=== PATIENT | female | born 1965 | race Caucasian/White ===

== ENCOUNTER 2019-03-21 06:37 | Emergency (ER) | payer BC ==
[~2019-03-21] VITALS: Ht 167.6 cm; Wt 99.8 kg
[2019-03-21 06:45] VITALS: BP_SYST 175
--- NOTE | 2019-03-21 06:49 | NUR ---
Patient to ER bed 5 to gown for evaluation. Side rails up. Report given to Karen DE LA CRUZ.
--- NOTE | 2019-03-21 06:55 | NUR ---
Pt came to the ED for upper ABD pain. She was seen by her PCP yesterday for a upper respiratory infection and given Amoxicillin and virtussin. Reports 2 hours prior to ED arrival pt felt nausea. No other complaints/injuries noted. Will cont. to monitor.
--- NOTE | 2019-03-21 06:57 | NUR ---
ER at bedside examining patient.
--- NOTE | 2019-03-21 07:08 | NUR ---
Garth boo in EDM - 03/21/19 at 0709 by [email or web address] JAIME Vasquez at bedside examining patient.
[2019-03-21] MEDS ORDERED: MAG HYDROX/AL HYDROX/SIMETH 30 ML, DICYCLOMINE HCL 20 MG, LIDOCAINE VISCOUS 2% 15ML (PO... PO ONE ×3 (07:15)
[2019-03-21 07:43] LABS: BASOPHILS % (AUTO) 0.4 % (0.0-2.0); EOSINOPHILS # (AUTO) 0.1 K/uL (0.0-0.4); EOSINOPHILS % (AUTO) 1.7 % (0.0-4.0); HEMATOCRIT 41.3 % (36-48); HEMOGLOBIN 13.9 g/dL (12.0-16.0); LYMPHOCYTES # (AUTO) 1.1 K/uL (1.0-5.5); LYMPHOCYTES % (AUTO) 13.9 % (20.5-51.5); MEAN CORPUSCULAR HEMOGLOBIN 31 pg (27-31); MEAN CORPUSCULAR HGB CONC 34 % (32-36); MEAN CORPUSCULAR VOLUME 92 fL (79.0-98.0); MONOCYTES # (AUTO) 0.5 K/uL (0.0-1.0); MONOCYTES % (AUTO) 6.4 % (1.7-9.3); NEUTROPHILS # (AUTO) 6.2 K/uL (1.8-7.7); NEUTROPHILS % (AUTO) 77.6 % (40.0-70.0); PLATELET COUNT (AUTO) 200 K/uL (130-430); RED BLOOD CELL COUNT(AUTO) 4.51 MIL/uL (4.2-6.2)
[2019-03-21] MEDS ORDERED: KETOROLAC TROMETHAMINE 60 MG/2 ML VIAL IM ONE (08:00)
[2019-03-21 08:18] LABS: CALCIUM 8.7 mg/dL (8.4-11.0); CREATININE 0.65 mg/dL (0.55-1.30); POTASSIUM 3.4 mmol/L (3.5-5.1)
[2019-03-21 08:23] LABS: ALBUMIN 3.4 g/dL (3.4-4.8); TOTAL BILIRUBIN 0.6 mg/dL (0.0-1.0)
[2019-03-21 09:40] VITALS: BP_SYST 175
--- NOTE | 2019-03-21 09:40 | NUR ---
Patient given written and verbal discharge instructions and verbalizes understanding. ER MD discussed with patient the results and treatment provided. Patient in stable condition. ID arm band removed. Rx of tramadol & Pepcid given. Patient educated on pain management and to follow up with PMD. Pain Scale 2/10 tolerable for patient . Opportunity for questions provided and answered. Medication side effect fact sheet provided.
== END 2019-03-21 09:40 | disposition home or self-care (01) ==
LOC: SED 06:37
DX: R10.13 Epigastric pain (principal); Z90.49 Acquired absence of other specified parts of digestive tract
CPT/HCPCS: 36415; 80053; 81002; 81025; 83690; 85025; 93005; 96372; 99284; J1885; J2001